=== PATIENT | male | born 1980 | race Caucasian/White ===

== ENCOUNTER 2016-11-05 12:28 | Day surgery (SDC) | payer BC ==
--- OUTSIDE RECORDS SUMMARY | 2016-11-05 12:32 | XMS REPORT | Summary of Care ---
:1980 Author Organization [facility] Address [facility] [place] [address]- Care Team Providers Name Role Phone Vicente Mi Marianela Primary Care Physician Encounter Date(s): 08/12/15 - 09/26/[address] [address]- [facility] Final: Low back pain Final: Radiculopathy, lumbar region Final: Other reduced mobility Final: Muscle weakness (generalized) Discharge Disposition: 01 Discharged to Home or Self Care Attending Physician: Yani Patricia, DO Vital Signs No data available for this section Problem List No data available for this section Allergies, Adverse Reactions, Alerts No Known Allergies Medications Flexeril 10 mg oral tablet 1 tab(s), Oral, TID, PRN as needed for muscle spasm, # 30 tab(s), 0 Refill(s), Start Date: 09/26/14 5:56:00 CDT, [facility]acy[email or web address] [id number] Start Date: 09/26/14 Status: Ordered Results No data available for this section Immunizations No data available for this section Procedures No data available for this section Social History No data available for this section Assessment and Plan No data available for this section
--- OUTSIDE RECORDS SUMMARY | 2016-11-05 12:32 | XMS REPORT | Summary of Care ---
:1980 Author Organization [facility] Address [facility] [place] [address]- Care Team Providers Name Role Phone Vicente Mi Marianela Primary Care Physician Encounter Date(s): 08/12/15 - 09/26/[address] [address]- [facility] Final: Low back pain Final: Radiculopathy, lumbar [...] Refill(s), Start Date: 09/26/14 5:56:00 CDT, Pharmacy: [id number] Start Date: 09/26/14 Status: Ordered Results No data available for this section Immunizations No data available for this section Procedures No data available for this section Social History No data available for this section Assessment and Plan No data available for this section
--- OUTSIDE RECORDS SUMMARY | 2016-11-05 12:32 | XMS REPORT | Continuity of Care Document ---
:1980 Author Organization [facility] [place] [address] Care Team Providers Name Role Phone Unavailable Primary Care Provider Unavailable Source Comments This disclosure is being made pursuant to the [employer] ASA program and maynot contain all information available regarding this patient.[facility] Active Allergies and Adverse Reactions Not on File Current Medications Be aware that medications may not be up to date as of this document. Alwaysverify current medications with the patient. Not on file Active Problems Not on file Social History Tobacco Use Types Packs/Day Years Used Date Never Assessed Plan of Care Health Maintenance Due Date Last Done Comments Retired-Pertussis Vaccine Adult 1997 Retired-Tetanus Vaccine Adult 1997 Retired-INFLUENZA VACCINE 12/31/2014 Results from Last 3 Months Not on file
--- NOTE | 2016-11-05 13:00 | OR ---
Anesthesia Pre Procedure Eval Date of Service: 11/05/16 Pre Procedure Evaluation: Last Vital Signs Temp 36.9 C 11/05/16 12:36 Pulse 99 11/05/16 12:36 Resp 18 11/05/16 12:36 BP 157/96 11/05/16 12:36 Pulse Ox 95 11/05/16 12:36 Anesthesia Pre Procedure Evaluation DATE: 11/05/2016 TIME: 1300 INDICATIONS: Herniated disc L4 5, low back and right leg pain PAST MEDICAL HISTORY: Long history of low back pain with right radicular pain. He has had therapy and taken prescription medication however his best long-term relief has been with epidural steroid injections. His most recent injection was over 2 years ago, and recently he has had an acute exacerbation of pain as was described earlier. EXAM: Heart S1-S2 regular; lungs clear bilaterally ASSESSMENT OF MEDICAL STATUS: In addition to the aforementioned history and physical I will add that he has no history of GERD or postop nausea. He does smoke and he was in encouraged to stop smoking as he had in previous visits, however, he continues to smoke and did smoke this morning. He also has been tested for obstructive sleep apnea and he has yet to obtain a sleep apnea machine. In addition he has been prescribed lisinopril however he does not take it either. I did discuss their health risks and hazards of not treating his blood pressure, sleep apnea, and as stated earlier smoking. His family was present for this discussion and all parties. To understand and accept direction however does not sound likely that he will follow any of these directions. PLANNED PROCEDURE: Epidural steroid injection, lumbar. Home Medications: HOME MEDICATIONS Cyclobenzaprine HCl [Flexeril] 10 mg PO TID PRN #30 tab 08/05/15 [Last Taken Unknown] HYDROcodone/ACETAMINOPHEN [[place] 5-325] 1 tab PO Q6H PRN #20 tab 08/05/15 [Last Taken Unknown] Lisinopril [Prinivil] 10 mg PO DAILY 11/04/16 [Last Taken Unknown]
[2016-11-05] MEDS ORDERED: DEXAMETHASONE SOD PHOSPHATE 10 MG/ML VIAL IJ ONE (13:20)
[2016-11-05] MEDS ORDERED: IOPAMIDOL 20 ML VIAL IJ ONE (13:20)
[2016-11-05] MEDS ORDERED: LIDOCAINE HCL/PF 5 ML VIAL IJ ONE (13:20)
--- NOTE | 2016-11-05 13:36 | OR ---
Anesthesia Procedure Note - Anesthesia Procedure Note Date of Service: 11/05/16 Narrative: Vital Signs - Last Taken Temp 36.9 C 11/05/16 12:36 Pulse 99 11/05/16 12:36 Resp 18 11/05/16 12:36 BP 157/96 11/05/16 12:36 Pulse Ox 95 11/05/16 12:36 11/05/16 13:30 ANESTHESIA PROCEDURE NOTE Date of Procedure: 11/05/2016 Time of procedure: 1310. Performed by: MEERA Mcelroy CRNAP, MSN Conveyor Tender: Ela THOMAS. Preprocedure diagnosis: Herniated disc L4 5 with low back and right radicular pain. Post procedure diagnosis: Same. Procedure: Epidural Steroid Injection L4 5 right. Indications: Low back and right radicular pain. Findings: See below. Details of the procedure: After the MRI report and films were reviewed, the patient was interviewed where risks and the procedure were explained. The patient was then brought to [facility] and was placed in the prone position. The back was prepped with DuraPrep and draped in a sterile fashion. The lumbar area was identified under fluoroscopy and the L4 5 space was localized with 1% lidocaine solution. The epidural space was identified using loss of resistance technique using a #20-gauge Touhy needle. 1 mL of Isovue was injected while the C-arm was positioned in the lateral orientation. The C-arm was then readjusted to an AP view and Isovue 200 2 milliliters was injected demonstrating a spread at the affected area. Dexamethasone 10mg and lidocaine 1 % 5 mL was injected, stylette was replaced and the epidural needle removed. A Band-Aid was then applied to the injection site, patient was placed in a supine position for 5 minutes then returned to ASU with good relief of pain, from a 10/ 10 to 0/10. EBL: None. Energy: 12.1 Seconds, 10.13 mGy Fluids: N/A. Specimen: N/A. Post procedure condition: The patient tolerated the procedure well. No complications were noted. Thank you for this consultation. Que Stephen CRNA, MSN, SEED BUYER
[2016-11-05 14:36] VITALS: BP 156/103
== END 2016-11-05 12:29 | disposition home or self-care (01) ==
LOC: AMB 12:28
PROVIDERS: ATTEND Family Medicine
PROC: 3E0S3BZ Introduction of Anesthetic Agent into Epidural Space, Percutaneous Approach (ICD-10-PCS; 2016-11-05)
PROC: 3E0S33Z Introduction of Anti-inflammatory into Epidural Space, Percutaneous Approach (ICD-10-PCS; principal; 2016-11-05 13:00)
DX: M51.26 Other intervertebral disc displacement, lumbar region (principal); Z68.41 Body mass index [BMI] 40.0-44.9, adult

== ENCOUNTER 2016-11-23 17:26 | Emergency (ER) | payer BC ==
[2016-11-23] MEDS ORDERED: KETOROLAC TROMETHAMINE 30 MG/ML VIAL IM ONE (18:01)
[2016-11-23] MEDS ORDERED: METHYLPREDNISOLONE SOD SUCC/PF 40 MG/ML VIAL IM ONE (18:01)
--- OUTSIDE RECORDS SUMMARY | 2016-11-23 18:01 | XMS REPORT | Clinical Summary ---
:1980 Author Organization [email or web address] [place] [address] Care Team Providers Name Role Phone Unavailable Primary Care Provider Unavailable Source Comments This disclosure is being made pursuant to the [employer] program and maynot contain all information available regarding this patient.[email or web address] Allergies Not on File Current Medications Be aware that medications may not be up to date as of this document. Alwaysverify current medications with the patient. Not on file Active Problems Not on file Social History Tobacco Use Types Packs/Day Years Used Date Never Assessed Sex Assigned at Date Recorded Not on file Last Filed Vital Signs Not on file Plan of Treatment Health Maintenance Due Date Last Done Comments Retired-Pertussis Vaccine Adult 1997 Retired-Tetanus Vaccine Adult 1997 Retired-INFLUENZA VACCINE 12/31/2014 Results Not on filefrom Last 3 Months
--- OUTSIDE RECORDS SUMMARY | 2016-11-23 18:01 | XMS REPORT | Summary of Care ---
:1980 Author Organization [facility] Care Team Providers Name Role Phone Demetris Araujo Juan Primary Care Physician Encounter Date(s): 10/18/16 - 10/18/16 [facility] [address] [place], [place] [address] Discharge Diagnosis: Acute low back pain with right-sided sciatica Discharge Disposition: Discharged to Home or Self Care Attending Physician: Vanessa Thao MD Admitting Physician: Vanessa Thao MD Vital Signs Most recent to oldest [Reference Range]: 1 Temperature Temporal Artery [36.0-38.0 DegC] 36.6 DegC (10/18/16 7:06 PM) Heart Rate Monitored [60-100 bpm] 100 bpm (10/18/16 7:06 PM) Respiratory Rate [12-20 br/min] 18 br/min (10/18/16 7:06 PM) SpO2 [90-100 %] 98 % (10/18/16 7:06 PM) Blood Pressure [90-130/60-90 mmHg] 179/104mmHg *HI* (10/18/16 7:06 PM) Most recent to oldest [Reference Range]: 1 Weight Dosing 129.40 kg1 (10/18/16 7:12 PM) Weight Measured 129.4 kg (10/18/16 7:06 PM) 1Result Comment: This result was because the dosing weight was either not entered or it is>30 days old. This result is based off: Weight Measured October 18, 2016 19:06:00 CDT by Charline Hurtado RN Problem List No data available for this section Allergies, Adverse Reactions, Alerts No Known Allergies Medications Augmentin 875 mg-125 mg oral tablet 1 tab(s), Oral, BID, # 20 tab(s), 0 Refill(s), Start Date: 08/04/16 11:08:00 CDT , Pharmacy: [facility] [id number] Start Date: 08/04/16 Stop Date: 08/14/16 Status: OrderedFlexeril 10 mg oral tablet 1 tab(s), Oral, TID, PRN as needed for muscle spasm, # 30 tab(s), 0 Refill(s), Start Date: 09/26/14 5:56:00 CDT, Pharmacy: [facility] [id number] Start Date: 09/26/14 Status: Orderedlidocaine 5% topical film 1 patch(es), Topical, Daily, # 30 patch(es), 0 Refill(s), Start Date: 10/18/16 19:35:00 CDT Start Date: 10/18/16 Status: OrderedpredniSONE 20 mg oral tablet 3 tab(s), Oral, Daily, # 15 tab(s), 0 Refill(s), Start Date: 10/18/16 19:35:00 CDT Start Date: 10/18/16 Stop Date: 10/23/16 Status: Ordered Results No data available for this section Immunizations No data available for this section Procedures No data available for this section Social History No data available for this section Assessment and Plan No data available for this section
--- OUTSIDE RECORDS SUMMARY | 2016-11-23 18:01 | XMS REPORT | Summary of Care ---
:1980 Author Organization [facility] Address [address] [place] [address] Care Team Providers Name Role Phone Vicente Mi Primary Care Physician Encounter Date(s): 08/04/16 - 08/04/16 [facility] [address] [place], [place] [id number] [place] [address] Discharge Diagnosis: Acute rhinitis Discharge Diagnosis: Acute recurrent maxillary sinusitis Discharge Diagnosis: Recurrent productive cough Discharge Diagnosis: Acute viral pharyngitis Discharge Disposition: 01 Discharged to Home or Self Care Attending Physician: DEXTER Banks Referring Physician: DEXTER Banks Vital Signs Most recent to oldest [Reference Range]: 1 Temperature Temporal Artery [36.0-38.0 DegC] 36.6 DegC (08/04/16 10:51 AM) Peripheral Pulse Rate [60-100 bpm] 94 bpm (08/04/16 10:51 AM) SpO2 [90-100 %] 95 % (08/04/16 10:51 AM) SpO2 Location Right hand (08/04/16 10:51 AM) Blood Pressure [90-130/60-90 mmHg] 154/106mmHg *HI* (08/04/16 10:51 AM) Mean Arterial Pressure, Cuff 122 mmHg (08/04/16 10:51 AM) Most recent to oldest [Reference Range]: 1 Weight Dosing 131.6 kg (08/04/16 10:51 AM) Weight Measured 131.6 kg (08/04/16 10:51 AM) Problem List No data available for this section Allergies, Adverse Reactions, Alerts No Known Allergies Medications Augmentin 875 mg-125 mg oral tablet 1 tab(s), Oral, BID, # 20 tab(s), 0 Refill(s), Start Date: 08/04/16 11:08:00 CDT , Pharmacy: [facility] [id number] Start Date: 08/04/16 Stop Date: 08/14/16 Status: OrderedFlexeril 10 mg oral tablet 1 tab(s), Oral, TID, PRN as needed for muscle spasm, # 30 tab(s), 0 Refill(s), Start Date: 09/26/14 5:56:00 CDT, Pharmacy: [facility] [id number] Start Date: 09/26/14 Status: Ordered Results No data available for this section Immunizations No data available for this section Procedures No data available for this section Social History No data available for this section Assessment and Plan No data available for this section
[2016-11-23] MEDS ORDERED: METHYLPREDNISOLONE SOD SUCC/PF 40 MG/ML VIAL ONE (18:04)
[2016-11-23] MEDS ORDERED: KETOROLAC TROMETHAMINE 30 MG/ML VIAL ONE (18:04)
--- NOTE | 2016-11-23 18:15 | ERNOTE ---
Back Pain ER HPI Date of Service: 11/23/16 Time Seen by Provider: 11/23/16 17:56 Source: patient Exam Limitations: no limitations Immunizations: IMMUNIZATION HX Immunizations Up to Date Yes History of Influenza Vaccine No Hx Pneumococcal Vaccination No Allergies/Adverse Reactions: Allergies No Known Allergies Allergy (Verified 11/05/16 12:40) Home Medications: HOME MEDICATIONS Cyclobenzaprine HCl [Flexeril] 10 mg PO TID PRN #30 tab 08/05/15 [Last Taken Unknown] HYDROcodone/ACETAMINOPHEN [[place] 5-325] 1 tab PO Q6H PRN #20 tab 08/05/15 [Last Taken Unknown] Lisinopril [Prinivil] 10 mg PO DAILY 11/04/16 [Last Taken Unknown] Cyclobenzaprine HCl [Flexeril] 10 mg PO TID PRN #15 tablet 11/23/16 [Last Taken Unknown] HYDROcodone/ACETAMINOPHEN [[place] 5-325] 1 each PO Q8H PRN #15 tablet 11/23/16 [ Last Taken Unknown] Narrative: Patient presents with back pain. This is right low back pain. He relates he was at work and twisted wrong with immediate pain right back. He has had a problem with back pain and radicular Sx in the past and this feels like an exacerbation of his back pain. Pain down lateral right leg. This is not acute and has been coming and going for some time. No fever. No fall. No loss of bowel or bladder control. No acute focal weakness, numbness or tingling. pain can be severe with movement. This is just like what he has had in the past. He states he normally gets a shot of toradol and a shot of steroid and goes home on muscle relaxants. Timing: Reports: constant Quality/Severity: Reports: severe, sharpness Location of pain: Reports: lower back Activities at Onset: Reports: other - twisting Recent Injury?: Reports: yes Possible Precipitating Factor: Reports: turning/bending Modifying Factors - (Improves): Reports: other - rest Modifying Factors - (Worsens): Reports: other - movement Associated Symptoms: Denies: fever/chills, constipation/incontinence, problems urinating, difficulty walking, numbess/weakness in legs Review of Systems - Review of Systems Constitutional: Absent: fever Respiratory: Absent: shortness of breath Cardiology: Absent: chest pain Gastrointestinal/Abdominal: Absent: abdominal pain Genitourinary: Absent: dysuria - Patient's Past Medical History Patient History - Medical: Other Patient History - Cardiac/Respiratory: Hypertension Patient History - Cancer: No Hx of Cancer Patient History - Surgical Procedures: Other Patient History - Other: None - Social History Living Situations: home Abuse History: No History of abuse Psych History: No pertinent hx Smoking Status: Current every day smoker Alcohol Use: rarely Drug Use: none - Immunizations Immunizations Up to Date: Yes Hx Pneumococcal Vaccination: No History of Influenza Vaccine: No Physical Exam - Physical Exam General Appearance: Present: alert, no apparent distress Head Exam: Present: normal inspection Eye Exam: Normal inspection: bilateral Ears, Nose, Throat: Present: normal ENT inspection Neck: Present: normal inspection Respiratory: Present: no respiratory distress Cardiovascular/Chest: Present: regular rate, rhythm Gastrointestinal/Abdominal: Present: normal bowel sounds, nontender, soft Back Exam: Present: other - muscular right low back tenderness. Palpation of right low back muscles causes him to grimace and completely reproduces his pain. No midline spinal tenderness.. Absent: CVA tenderness (R), CVA tenderness (L) Extremity Exam: Present: normal inspection Neurological Exam: Present: alert, normal mood/affect, no motor/sensory deficits , psychiatric rn II-XII nml as tested, other - Full LE strength and sensation. Patellar tendon reflexes equal and symmetric. Gait antalgic. Can stand on toes and heels. No suggestion of cauda equina syndrome. No acute neuro deficits. Skin Exam: Present: normal color, warm/dry. Absent: skin rash ED Progress - Vital Signs Patient's Vital Signs:: I have reviewed the patient's vital signs. Vital Signs: Vital Signs 11/23/16 17:33 Temperature 36.8 C Pulse Rate 99 Respiratory 16 Rate Blood Pressure 132/90 O2 Sat by Pulse 99 Oximetry - Progress/Reassessment Chief Complaint: Back Pain Progress Note-Subjective: 11/23/16 18:10 Nothing to suggest infectious process, diskitis or trauma. nothign to suggest need for acute imaging. No cauda equina syndrome or neuro deficits. He feels like going home. i discussed warning signs and reasons to return as well as the need for close f/u. Departure Clinical Impression: Low back pain - Departure Disposition: Home self-care Condition: Stable Instructions: Back Pain, Adult, [id number] Additional Instructions: Rest. No driving with pain medications. Follow-up with your doctor in 2-3 days for a re-check. Return for trouble with bowel or bladder control, numbness , tingling, weakness or if your condition worsens or changes in any way. Referrals: Demetris Araujo DO [Primary Care Provider] - Prescriptions: Cyclobenzaprine HCl [Flexeril] 10 mg PO TID PRN #15 tablet PRN Reason: Spasms HYDROcodone/ACETAMINOPHEN [[place] 5-325] 1 each PO Q8H PRN #15 tablet PRN Reason: Pain
[2016-11-23 18:27] VITALS: BP 130/95
== END 2016-11-23 18:26 | disposition home or self-care (01) ==
LOC: ER 17:26
DX: M54.5 Low back pain (principal); F17.200 Nicotine dependence, unspecified, uncomplicated; I10 Essential (primary) hypertension; X50.1XXA Overexertion from prolonged static or awkward postures, initial encounter; X50.0XXA Overexertion from strenuous movement or load, initial encounter; Y93.89 Activity, other specified; Y92.63 Factory as the place of occurrence of the external cause; Y99.0 Civilian activity done for income or pay

== ENCOUNTER 2016-12-28 08:17 | Day surgery (SDC) | payer BC ==
--- NOTE | 2016-12-28 08:51 | OR ---
Anesthesia Pre Procedure Eval Pre Procedure Evaluation: Last Vital Signs Temp 36.3 C L 12/28/16 08:26 Pulse 91 12/28/16 08:26 Resp 16 12/28/16 08:26 BP 130/95 11/23/16 18:26 Pulse Ox 97 12/28/16 08:26 PRE PROCEDURE EVALUATION:: DATE: 12/28/2016 TIME: 40 INDICATIONS: Radicular low back pain. Herniated disc at L4 5. PAST MEDICAL HISTORY: Has had previous epidural steroid injections. The last was approximately 1 month ago. Patient's pain has improved since that injection but is still persistent and patient states that it flares up at times. EXAM: Lungs clear and equal. Heart rate regular. Patient complains of low back pain radiating into his right hip and right leg. ASSESSMENT OF MEDICAL STATUS: Procedure risks and benefits were explained to and accepted by the patient. No contraindication to epidural steroid injection. PLANNED PROCEDURE : Fluoroscopy-guided epidural steroid injection at L4 5 Home Medications: HOME MEDICATIONS Lisinopril [Prinivil] 10 mg PO DAILY 11/04/16 [Last Taken 12/24/16] Cyclobenzaprine HCl [Flexeril] 10 mg PO TID PRN #15 tablet 11/23/16 [Last Taken Unknown] HYDROcodone/ACETAMINOPHEN [[place] 5-325] 1 each PO Q6H PRN 12/27/16 [Last Taken Unknown] Ibuprofen [Motrin] 800 mg PO QID 12/27/16 [Last Taken Unknown]
[2016-12-28] MEDS ORDERED: IOPAMIDOL 20 ML VIAL IJ ONE (09:05)
[2016-12-28] MEDS ORDERED: LIDOCAINE HCL/PF 5 ML VIAL IJ ONE (09:07)
[2016-12-28] MEDS ORDERED: DEXAMETHASONE SOD PHOSPHATE 10 MG/ML VIAL IJ ONE (09:07)
--- NOTE | 2016-12-28 09:19 | OR ---
Anesthesia Procedure Note - Anesthesia Procedure Note Narrative: Vital Signs - Last Taken Temp 36.3 C L 12/28/16 08:26 Pulse 88 12/28/16 09:05 Resp 16 12/28/16 09:05 BP 176/113 12/28/16 09:05 Pulse Ox 96 12/28/16 09:05 O2 Oxygen Delivery Method Room Air 12/28/16 09:16 ANESTHESIA PROCEDURE NOTE Date of Procedure: 12/28/2016 Time of procedure: 904. Performed by: Cristian Suarez CRNA Bitumen Plant Operator: None. Preprocedure diagnosis: Herniated disc L4 5. Radicular low back pain. Post procedure diagnosis: Same. Procedure: Epidural Steroid Injection under fluoroscopic guidance at L4 5. Indications: Radicular low back pain. Findings: See below. Details of the procedure: The patient was brought back to operating room #4. The patient was then placed in the prone position. Back was prepped with DuraPrep. Patient was then draped in sterile fashion. Lidocaine 1% was infiltrated to the skin and subcutaneous tissues at the level of the L4 5 interspace. The epidural space was identified using a 20-gauge Tuohy needle with [id number] technique and fluoroscopic guidance. A total of 2 mL of Isovue-200 contrast dye was injected in first the AP and lateral positions to confirm needle placement. Dexamethasone 10 mg + 5 mL of 1% preservative- free lidocaine was administered to the epidural space after negative aspiration for blood and CSF. The Tuohy needle was removed intact. A Band-Aid was applied to the patient's back. The patient was then placed in a supine position for 5 minutes before returning to the ambulatory surgical unit. Total fluoroscopy time 15.6 seconds. Total dose 13.16 m/gy. EBL: Minimal. Fluids: N/A. Specimen: N/A. Post procedure condition: The patient tolerated the procedure well. No complications were noted. Thank you for this consultation. Cristian Suarez CRNA
[2016-12-28 09:50] VITALS: BP 174/118
== END 2016-12-28 08:18 | disposition home or self-care (01) ==
LOC: AMB 08:17
PROVIDERS: ATTEND Family Medicine
PROC: 3E0S3BZ Introduction of Anesthetic Agent into Epidural Space, Percutaneous Approach (ICD-10-PCS; 2016-12-28)
PROC: 3E0S33Z Introduction of Anti-inflammatory into Epidural Space, Percutaneous Approach (ICD-10-PCS; principal; 2016-12-28 09:15)
DX: M51.26 Other intervertebral disc displacement, lumbar region (principal); Z68.41 Body mass index [BMI] 40.0-44.9, adult